=== PATIENT | female | born 1970 | race Caucasian/White ===

== ENCOUNTER 2016-04-20 11:14 | Emergency (ER) | payer OTHER, MEDICAID ==
[2016-04-20 11:53] VITALS: TEMP 97.4
[2016-04-20] MEDS ORDERED: ONDANSETRON ODT 4 MG TAB PO STA (13:00)
[2016-04-20] MEDS ORDERED: HYDROmorphone 1 MG/ML 1 ML SYRINGE IM STA (13:00)
--- NOTE | 2016-04-20 13:05 | ED ---
General Adult HPI - General Chief complaint: Back Pain/Injury Stated complaint: Back pain Time Seen by Provider: 04/20/16 12:44 Source: patient, RN notes reviewed, old records reviewed Mode of arrival: ambulatory Limitations: no limitations - History of Present Illness Initial comments: Patient is a 45-year-old female who presents emergency room today with chief complaint of increased back pain times one day. Does admit that she was leaving a patient's house yesterday when she slipped on the ramp. She states she did not fall down was able to catch herself but twisted her back. She states as the day went on yesterday the back pain increased. She states she woke up this morning with a numbness sensation bilaterally to the left and right hips. She states that she's tried ibuprofen and acetaminophen. She states that the numbness tingling sensation into the right leg has improved. Still experiencing some pain shooting into the left leg mid thigh. Does admit that she felt some numbness in the perineum earlier. Patient states this is improved also. Denies any bowel or bladder incontinence retention. Denies any other complaints. Does admit that she's had some back problems on and off in the past but nothing serious. Patient does not that she went to [facility] earlier today was referred here to the emergency room. Patient denies any recent fever, chills, shortness of breath, chest pain, abdominal pain, nausea or vomiting, dysuria or hematuria, constipation or diarrhea, headaches or visual changes, or any other complaints. - Related Data Home Medications Medication Instructions Recorded Confirmed ALPRAZolam [Xanax] 0.25 mg PO BID PRN 04/20/16 04/20/16 Metoprolol Succinate (ER) [Toprol 50 mg PO DAILY 04/20/16 04/20/16 Xl] amLODIPine [Norvasc] 5 mg PO DAILY 04/20/16 04/20/16 Previous Rx's Medication Instructions Recorded Cyclobenzaprine [Flexeril] 10 mg PO TID #20 tab 04/20/16 Dexamethasone 0.75 mg PO DIRECTED #12 tablet 04/20/16 Hydrocodone/Acetaminophen [[place] 1 each PO Q6HR PRN #20 tab 04/20/16 5-325] Ibuprofen [Motrin] 800 mg PO Q6HR PRN #30 tab 04/20/16 Allergies Allergy/AdvReac Type Severity Reaction Status Date / Time No Known Allergies Allergy Verified 04/20/16 13:09 Review of Systems ROS Statement: Those systems with pertinent positive or pertinent negative responses have been documented in the HPI. ROS Other: All systems not noted in ROS Statement are negative. Past Medical History Past Medical History: Hypertension History of Any Multi-Drug Resistant Organisms: None Reported Past Surgical History: Tonsillectomy Past Psychological History: Anxiety Smoking Status: Never smoker Past Alcohol Use History: None Reported Past Drug Use History: None Reported General Exam - General Exam Comments Initial Comments: General: The patient is awake and alert, in no distress, and does not appear acutely ill. Neck: The neck is supple, there is no tenderness or JVD. Cardiovascular: There is a regular rate and rhythm. No murmur, rub or gallop is appreciated. Respiratory: Lungs are clear to auscultation, respirations are non-labored, breath sounds are equal. No wheezes, stridor, rales, or rhonchi. Gastrointestinal: Soft, non-distended, non-tender abdomen without masses or organomegaly noted. There is no rebound or guarding present. No CVA tenderness. . Back: Patient has normal appearance of thoracic, lumbar spine. No step-offs forms appreciated. Patient tender palpation L1 and L2. Increased paravertebral tenderness on the left compared to the right. Patient shows good range of motion. Is moving slowly due to pain. Patient sensations intact Musculoskeletal: Normal ROM, no tenderness. Strength 5/5. Sensation intact. Pulses equal bilaterally 2+. Neurological: A&O x 3. CN II-XII intact, There are no obvious motor or sensory deficits. Coordination appears grossly intact. Speech is normal. Skin: Skin is warm and dry and no rashes or lesions are noted. Psychiatric: Cooperative, appropriate mood & affect, normal judgment. : [employer]INE[employer]OO Lopes present for exam. Normal rectal tone. Limitations: no limitations Course Vital Signs 04/20/16 11:49 Temperature 97.4 F L Pulse Rate 75 Respiratory 17 Rate Blood Pressure 145/80 O2 Sat by Pulse 100 Oximetry Medical Decision Making - Medical Decision Making Case discussed in detail with attending physician Dr. Woodruff. Patient reexamined at this time shows no signs of distress. Doesn't that she's feeling better after pain medication given here in the emergency room. Patient's x-ray reviewed shows no acute changes. Results were discussed with the patient. Patient will be discharged home and advised to follow-up with family doctor. She does have an appointment with [facility] tomorrow. Was discussed with patient about having a outpatient MRI. Signs and symptoms return were discussed with the patient. Patient will be discharged home with pain medications of [place], ibuprofen along with muscle relaxer and steroid Dosepak for her symptoms. Disposition Clinical Impression: Acute low back pain, Lumbar radiculopathy, acute Disposition: HOME SELF-CARE Condition: Good Instructions: Acute Low Back Pain (ED) Additional Instructions: Please use medication as discussed. Please follow-up with family doctor in the next 2 days of symptoms have not improved. Please return to emergency room if the symptoms increase or worsen or for any other concerns. Prescriptions: Cyclobenzaprine [Flexeril] 10 mg PO TID #20 tab Dexamethasone 0.75 mg PO DIRECTED #12 tablet Hydrocodone/Acetaminophen [[place] 5-325] 1 each PO Q6HR PRN #20 tab PRN Reason: Pain Ibuprofen [Motrin] 800 mg PO Q6HR PRN #30 tab PRN Reason: Pain Time of Disposition: 14:18
--- NOTE | 2016-04-20 13:48 | XR ---
EXAM TYPE: LUMBAR SPINE X RAY SERIES COMPARISON: NONE HISTORY: Pain FINDINGS: Alignment is anatomic. The pedicles are intact. The transverse processes are intact. There is no s pondylolysis or spondylolisthesis. Severe degenerative disc disease L5-S1 with hypertrophic spur for mation and facet arthropathy. IMPRESSION: 1. Severe degenerative disc disease L5-S1.
[2016-04-20 14:24] VITALS: BP 121/72; PULSE 65; RESP 16
== END 2016-04-20 14:52 | disposition home or self-care (01) ==
LOC: EC 11:14
DX: M54.16 Radiculopathy, lumbar region (principal); W01.0XXA Fall on same level from slipping, tripping and stumbling without subsequent striking against object, initial encounter; M51.37 Other intervertebral disc degeneration, lumbosacral region; I10 Essential (primary) hypertension; F41.9 Anxiety disorder, unspecified; Z79.899 Other long term (current) drug therapy
CPT/HCPCS: 99283; 96372; 72100; J1170

== ENCOUNTER → 2016-12-07 | Outpatient (CLI) | payer MEDICAID ==
--- NOTE | 2016-12-08 07:15 | MM ---
Reason for exam: screening (asymptomatic). Last mammogram was performed 4 years and 11 months ago. Physical Findings: A clinical breast exam by your physician is recommended on an annual basis and results should be correlated with mammographic findings. MG 3D Screening Mammo W/Cad Bilateral CC and MLO view(s) were taken. Prior study comparison: January 05, 2012, bilateral digital screening mammo w/CAD. The breast tissue is heterogeneously dense. This may lower the sensitivity of mammography. There is no discrete abnormality. No significant changes when compared with prior studies. ASSESSMENT: Negative, BI-RAD 1 RECOMMENDATION: Routine screening mammogram of both breasts in 1 year.
== END | disposition home or self-care (01) ==
LOC: RADMAMWWP 07:33
PROVIDERS: ATTEND Family Medicine
DX: Z12.31 Encounter for screening mammogram for malignant neoplasm of breast (principal)
CPT/HCPCS: 77063; G0202

== ENCOUNTER → 2017-01-10 | Outpatient (CLI) | payer MEDICAID ==
[2017-01-10 09:41] LABS: Basophils # (A) 0.1 k/uL (0-0.2); Basophils % (A) 1 %; CH 30.7; CHCM 33.2; Eosinophils # (A) 0.1 k/uL (0-0.7); Eosinophils % (A) 2 %; HCT 40.4 % (34.0-46.0); HDW 2.47; HGB 13.3 gm/dL (11.4-16.0); Luc # (Auto) 0.07; Luc % (Auto) 1; Lymphocytes # (A) 1.3 k/uL (1.0-4.8); Lymphocytes % (A) 23 %; MCH 30.5 pg (25.0-35.0); MCHC 32.9 g/dL (31.0-37.0); MCV 92.8 fL (80.0-100.0); Mean Platelet Volume 6.5; Monocytes # (A) 0.3 k/uL (0-1.0); Monocytes % (A) 5 %; Neutrophils % (A) 68 %; RBC 4.36 m/uL (3.80-5.40); RDW 12.2 % (11.5-15.5); WBC 5.9 k/uL (3.8-10.6); WBC (Perox) 5.96
[2017-01-10 09:44] LABS: ALT 22 U/L (9-52); AST 19 U/L (14-36); Alkaline Phosphatase 72 U/L (38-126); Anion Gap 10 mmol/L; Blood Urea Nitrogen 18 mg/dL (7-17); Calcium 9.4 mg/dL (8.4-10.2); Carbon Dioxide 26 mmol/L (22-30); Chloride 105 mmol/L (98-107); Cholesterol 140 mg/dL (<200); Glucose 94 mg/dL (74-99); HDL Cholesterol 52 mg/dL (40-60); Non-African American GFR(MDRD) >60 (>60 ml/min/1.73 sqM); Potassium 4.2 mmol/L (3.5-5.1); Sodium 141 mmol/L (137-145); Total Bilirubin 0.5 mg/dL (0.2-1.3); Total Protein 7.3 g/dL (6.3-8.2)
== END | disposition home or self-care (01) ==
LOC: LABWHC1 08:42
PROVIDERS: ATTEND Family Medicine
DX: I10 Essential (primary) hypertension (principal); M51.26 Other intervertebral disc displacement, lumbar region; D32.9 Benign neoplasm of meninges, unspecified; E55.9 Vitamin D deficiency, unspecified; E53.8 Deficiency of other specified B group vitamins
CPT/HCPCS: 36415; 80053; 80061; 82306; 82607; 84439; 84443; 85025

== ENCOUNTER → 2017-07-04 | Outpatient (CLI) | payer MEDICAID ==
--- NOTE | 2017-07-04 15:23 | MR ---
EXAMINATION TYPE: MR brain wo/w con DATE OF EXAM: 07/04/2017 COMPARISON: Prior MRI brain December 30, 2015. HISTORY: recheck meningioma TECHNIQUE: Multiplanar, multisequence images of the brain and brainstem is performed without and with IV contras t, utilizing 7 mL intravenous Gadavist . FINDINGS: Diffusion weighted images demonstrate no evidence of a recent infarct or other diffusion ab normality. There is no worrisome extra-axial fluid collection. The ventricular system and cisternal spaces are normal in size and appearance. The brain volume is age appropriate. There are few scatte red foci of T2 hyperintensity seen throughout the deep and periventricular white matter. Approximatel y 10-15 scattered lesions remain present. Lesions are nonspecific in appearance and distribution but most likely on basis of product of chronic small vessel ischemic change in patient of this age. Midline structures demonstrate normal morphology. The craniocervical junction appears within normal limits. There is redemonstration of fairly homogeneous enhancing extra-axial mass right paracentral r egion measuring 2.5 x 2.3 x 2.1 cm craniocaudal dimension axial image 24 and sagittal image 82 consis tent with meningioma that is grossly stable in size and appearance from prior MRI no new suspicious e nhancing lesions are seen.. The dural venous sinuses appear patent. The visualized sinuses are clear and the globes are intact. IMPRESSION: Stable fairly moderate size right occipital roughly 2.5 cm meningioma. Mild nonspecific w jose guadalupe matter changes. No new suspicious findings appreciated.
== END | disposition home or self-care (01) ==
LOC: RADMRIMAIN 14:32
PROVIDERS: ATTEND Family Medicine
DX: D32.9 Benign neoplasm of meninges, unspecified (principal)
CPT/HCPCS: 70553; A9581

== ENCOUNTER → 2017-07-05 | Outpatient (CLI) | payer MEDICAID ==
--- NOTE | 2017-07-06 11:13 | ECHOF ---
Referral Reason:R07.9 Chest Pain MEASUREMENTS -------- HEIGHT: 160.0 cm WEIGHT: 67.6 kg BP: RVIDd: 2.7 cm (< 3.3) IVSd: 1.0 cm (0.6 - 1.1) LVIDd: 4.2 cm (3.9 - 5.3) LVPWd: 0.8 cm (0.6 - 1.1) IVSs: 1.2 cm LVIDs: 3.0 cm LVPWs: 1.1 cm LA Diam: 3.0 cm (2.7 - 3.8) LAESV Index (A-L): 29.26 ml/m Ao Diam: 2.3 cm (2.0 - 3.7) AV Cusp: 1.8 cm (1.5 - 2.6) LA Diam: 3.7 cm (2.7 - 3.8) MV EXCURSION: 18.221 mm (> 18.000) MV EF SLOPE: 83 mm/s (70 - 150) EPSS: 0.3 cm MV E Peter: 0.66 m/s MV DecT: 172 ms MV A Peter: 0.67 m/s MV E/A Ratio: 0.98 RAP: 5.00 mmHg RVSP: 24.48 mmHg FINDINGS -------- Sinus rhythm. This was a technically good study. LV size, wall thickness and systolic function are normal, with an EF greater than 55%. The left joe tricular size is normal. The right ventricle is normal in size. The left atrial size is normal. LA is midly dilated 29-33ml/m2. The right atrial size is normal. The aortic valve is trileaflet, and appears structurally normal. No aortic stenosis or regurgitation. There is trace mitral regurgitation. Mild tricuspid regurgitation present. There is no evidence of pulmonary hypertension. The right v entricular systolic pressure, as measured by Doppler, is 24.48mmHg. There is no pulmonic regurgitation present. The aortic root size is normal. There is no pericardial effusion. CONCLUSIONS -------- 1. LV size, wall thickness and systolic function are normal, with an EF greater than 55%. 2. The left ventricular size is normal. 3. The left atrial size is normal. 4. LA is midly dilated 29-33ml/m2. 5. The aortic valve is trileaflet, and appears structurally normal. No aortic stenosis or regurgitati on. 6. There is trace mitral regurgitation. 7. Mild tricuspid regurgitation present. 8. There is no evidence of pulmonary hypertension. 9. The right ventricular systolic pressure, as measured by Doppler, is 24.48mmHg. 10. There is no pulmonic regurgitation present. 11. The aortic root size is normal. 12. There is no pericardial effusion. [employer]: Cecelia Kurtz RDCS
== END | disposition home or self-care (01) ==
LOC: RADECHMAIN 14:04
PROVIDERS: ATTEND Family Medicine
DX: I07.1 Rheumatic tricuspid insufficiency (principal)
CPT/HCPCS: 93306

== ENCOUNTER → 2017-09-01 | Outpatient (CLI) | payer MEDICAID ==
--- NOTE | 2017-09-01 12:17 | CT ---
EXAMINATION TYPE: CT brain w con DATE OF EXAM: 09/01/2017 COMPARISON: 07/04/2017 MRI and 12/30/2015 MRI. HISTORY: Known right posterior parietal parasagittal meningioma. Follow-up exam. CT DLP: 2688 mGycm Automated Exposure Control for Dose Reduction was Utilized. TECHNIQUE: CT scan of the head is performed with IV contrast.,CT scan of the head is performed withou t and with with IV Contrast, patient injected with 65mL of Isovue 370. FINDINGS: The known right parasagittal posterior parietal extradural partially calcified heterogenou s intensely enhancing meningioma measures approximately 2.3 x 2.5 x 2.2 cm in transverse by anterior posterior by craniocaudal dimension with minimal mass effect upon the surrounding sulci and gyri. Thi s is similar in measurement to the prior MR dated 07/04/2017 (measurements of 2.3 x 2.5 x 2.1 cm) give n differences in technique. No surrounding vasogenic edema is identified. No additional intra-axial o r extra-axial masses are seen. No additional abnormal areas of intraparenchymal enhancement are prese nt. The known mild nonspecific white matter change on MRI is better appreciated on MRI. There is no suspicious extra axial fluid collection. The ventricles and sulci are within normal limits in size. T he globes are intact and the visualized sinuses are clear. IMPRESSION: Redemonstration of the right parasagittal extra-axial meningioma measuring up to 2.5 cm, unchanged from the MRI of 07/04/2017. No new intracranial findings.
--- NOTE | 2017-09-01 12:29 | CT ---
EXAMINATION TYPE: CT angio head neck DATE OF EXAM: 09/01/2017 HISTORY: Benign neoplasm of cerebral meninges, dizziness COMPARISON: NONE CT DLP: 2688 mGycm. Automated Exposure Control for Dose Reduction was Utilized. TECHNIQUE: CTA scan of the neck is performed without and with IV Contrast, patient injected with 65 mL of Isovue 370, axial images are obtained, coronal and sagittal reformatted images are reviewed. Th ree-D reconstructed images are created on an independent workstation and reviewed. FINDINGS: Carotid/Vascular Structures: There is a normal conventional 3 vessel branch pattern of the aortic arc h. The common carotids, internal carotids, external carotids, and vertebral arteries are patent witho ut evidence of dissection, hemodynamically significant stenosis, occlusion, or aneurysmal outpouching . The vertebral arteries are codominant. The mary's igloo of [place] is intact and unremarkable. No peripher al aneurysm is seen. No arterial venous malformation is identified. Other: Minimal bibasilar subsegmental dependent atelectasis is seen within the lung apices. Mildly pr ominent but nonenlarged cervical chain lymph nodes are noted. The known right hemispheric meningioma is redemonstrated and described on the CT brain dictation of the same date. IMPRESSION: No evidence for hemodynamically significant stenosis, vascular occlusion, dissection, or aneurysmal outpouching within the head or neck.
== END | disposition home or self-care (01) ==
LOC: RADCTMAIN 10:56
PROVIDERS: ATTEND Neurological Surgery
DX: D32.0 Benign neoplasm of cerebral meninges (principal)
CPT/HCPCS: 70496; 70460; 70498; Q9967

== ENCOUNTER → 2018-02-14 | Outpatient (CLI) | payer MEDICAID ==
[2018-02-14 13:06] LABS: Basophils % (A) 1 %; Eosinophils # (A) 0.1 k/uL (0-0.7); Eosinophils % (A) 2 %; HCT 37.7 % (34.0-46.0); HGB 12.8 gm/dL (11.4-16.0); Lymphocytes # (A) 1.5 k/uL (1.0-4.8); Lymphocytes % (A) 25 %; MCH 31.2 pg (25.0-35.0); MCV 91.8 fL (80.0-100.0); Mean Platelet Volume 6.5; Monocytes # (A) 0.2 k/uL (0-1.0); Monocytes % (A) 4 %; Neutrophils # (A) 4.2 k/uL (1.3-7.7); Neutrophils % (A) 68 %; Platelet Count 287 k/uL (150-450); RBC 4.11 m/uL (3.80-5.40); RDW 12.6 % (11.5-15.5); WBC 6.1 k/uL (3.8-10.6)
[2018-02-14 18:59] LABS: Albumin 4.3 g/dL (3.80-4.90); Albumin/Globulin Ratio 2.05 (1.20-2.10); Anion Gap 7.4 mmol/L (4.00-12.00); Calcium 9.2 mg/dL (8.7-10.3); Carbon Dioxide 27.6 mmol/L (21.6-31.8); Globulin 2.1 g/dL (2.1-3.7); Potassium 3.6 mmol/L (3.5-5.5); Total Bilirubin 0.7 mg/dL (0.3-1.2); Total Protein 6.4 g/dL (6.2-8.2)
[2018-02-14 19:06] LABS: T4, Free (Free Thyroxine) 1.1 ng/dL (0.80-1.80)
== END | disposition home or self-care (01) ==
LOC: LABWHC1 11:48
PROVIDERS: ATTEND Family Medicine
DX: F41.9 Anxiety disorder, unspecified (principal); I10 Essential (primary) hypertension
CPT/HCPCS: 36415; 80053; 82607; 84439; 84443; 85025

== ENCOUNTER → 2018-02-15 | Outpatient (CLI) | payer MEDICAID ==
--- NOTE | 2018-02-15 20:27 | MR ---
EXAMINATION TYPE: MR brain wo/w con DATE OF EXAM: 02/15/2018 COMPARISON: 07/04/2017 HISTORY: 6 month follow up to evaluate tumor. Gadavist 7.5 TECHNIQUE: Multiplanar, multisequence images of the brain and brainstem is performed without and with IV contras t, utilizing 7.5 mL intravenous Gadavist . FINDINGS: Diffusion weighted images demonstrate no evidence of a recent infarct or other diffusion ab normality. The ventricular system and cisternal spaces are normal in size and appearance. The brain volume is age appropriate. There are few scattered foci of T2 hyperintensity seen throughout the deep and periventricular white matter. Approximately 10-15 scattered lesions remain present. Lesions are nonspecific in appearance a nd distribution Heart, turcica noted. Craniocervical junction maintained. There is a small amount of fluid surroundin g the optic nerves bilaterally. The dural venous sinuses appear patent. There is redemonstration of fairly homogeneous enhancing extra-axial mass right parietal occipital ju nction measuring 2.5 x 2.3 x 2.1 cm which is stable. IMPRESSION: 1. Stable right cerebral hemisphere extra-axial mass measuring approximately 2.5 cm. Findings unchang ed in size or appearance from the prior exam. Meningioma most likely etiology. Dural venous sinuses e nhance. There is some compression of the superior sagittal sinus by the extra-axial mass which is sta ble. 2. Nonspecific white matter changes are stable in appearance. Differential diagnosis includes hyperte nsion, remote microvascular ischemia, and demyelinating process. 3. There is a tiny amount of fluid surrounding the optic nerves. This is a nonspecific finding can oc casionally be seen with benign increased intracranial hypertension. Partially empty sella also noted. Correlate clinically.
== END | disposition home or self-care (01) ==
LOC: RADMRIMAIN 17:59
PROVIDERS: ATTEND Family Medicine
DX: G93.89 Other specified disorders of brain (principal); R90.89 Other abnormal findings on diagnostic imaging of central nervous system; I10 Essential (primary) hypertension; Z86.69 Personal history of other diseases of the nervous system and sense organs
CPT/HCPCS: 70553; A9585

== ENCOUNTER → 2018-07-17 | Outpatient (CLI) | payer MEDICAID ==
[2018-07-17 08:38] LABS: Basophils % (A) 1 %; Eosinophils # (A) 0.1 k/uL (0-0.7); Eosinophils % (A) 1 %; HCT 39.8 % (34.0-46.0); HGB 13.3 gm/dL (11.4-16.0); Lymphocytes # (A) 1.8 k/uL (1.0-4.8); Lymphocytes % (A) 27 %; MCH 30.8 pg (25.0-35.0); MCHC 33.5 g/dL (31.0-37.0); MCV 91.9 fL (80.0-100.0); Mean Platelet Volume 6.7; Monocytes # (A) 0.4 k/uL (0-1.0); Monocytes % (A) 6 %; Neutrophils # (A) 4.1 k/uL (1.3-7.7); Neutrophils % (A) 64 %; Platelet Count 259 k/uL (150-450); RBC 4.33 m/uL (3.80-5.40); RDW 12.7 % (11.5-15.5); WBC 6.5 k/uL (3.8-10.6)
[2018-07-17 08:47] LABS: ALT 21 U/L (9-52); AST 17 U/L (14-36); Albumin 4.4 g/dL (3.5-5.0); Alkaline Phosphatase 57 U/L (38-126); Anion Gap 8 mmol/L; Blood Urea Nitrogen 18 mg/dL (7-17); Calcium 9.5 mg/dL (8.4-10.2); Carbon Dioxide 26 mmol/L (22-30); Chloride 105 mmol/L (98-107); Cholesterol 147 mg/dL (<200); Glucose 89 mg/dL (74-99); HDL Cholesterol 60 mg/dL (40-60); LDL Cholesterol,Calculated 66 mg/dL (0-99); Magnesium 2.1 mg/dL (1.6-2.3); Potassium 4.2 mmol/L (3.5-5.1); Sodium 139 mmol/L (137-145); Total Bilirubin 0.8 mg/dL (0.2-1.3); Triglycerides 105 mg/dL (<150)
[2018-07-17 09:03] LABS: T4, Free (Free Thyroxine) 1.02 ng/dL (0.78-2.19)
[2018-07-17 16:24] LABS: Vitamin D 25 Hydroxy 38.3 ng/mL (30.0-100.0)
--- NOTE | 2018-07-18 15:11 | MR ---
EXAMINATION TYPE: MR brain wo/w con DATE OF EXAM: 07/17/2018 COMPARISON: 02/15/2018 MRI brain HISTORY: Meningioma TECHNIQUE: Multiplanar, multisequence images of the brain and brainstem is performed without and with IV contras t, utilizing 7 mL intravenous Gadavist . FINDINGS: There is redemonstration of a T1 and T2 isointense nearly homogeneously enhancing right par afalcine meningioma. No acute intracranial hemorrhage is seen on T1-weighted noncontrast imaging. Thi s does display some internal heterogeneity and suspected calcifications. There is minimal mass effect on the posterior falx with few millimeter shift leftward. No surrounding vasogenic edema. Mild mass effect on the surrounding sulci and gyri. This does demonstrate dural tail and is extra-axial in loca tion. This measures approximately 2.4 x 2.6 x 2.5 cm as opposed to 2.5 x 2.3 x 2.1 cm demonstrating m inimal interval growth. Again there is some mass effect on the superior sagittal sinus although this does appear patent. Diffusion weighted images demonstrate no evidence of a recent infarct or other diffusion abnormality. There is no extra-axial fluid collection. There is stable size and number of the approximately 10-1 5 T2/FLAIR hyperintense nonenhancing foci in the subcortical and periventricular white matter in comp arison the prior of 02/07/2018. The ventricular system and cisternal spaces are normal in size and ap pearance. The brain volume is age appropriate. Midline structures demonstrate normal morphology. The craniocervical junction appears within normal limits. The visualized sinuses are clear and the globes are intact. Again there is minimal subarachno id fluid surrounding the optic nerves bilaterally and a partially empty sella turcica that can be see n in increased intracranial pressure as noted on the prior although could be an incidental finding. IMPRESSION: 1. Slight interval increase in size of the right extra-axial mass with characteristics most compatibl e with a hemangioma or there is again slight mass effect on the superior sagittal sinus seen surround ing sulci however no significant vasogenic edema is seen nor dural venous occlusion. 2. Stable nonspecific white matter change, possibly on the basis of microangiopathy.
== END | disposition home or self-care (01) ==
LOC: RADMRIMAIN 08:00
PROVIDERS: ATTEND Family Medicine
DX: D32.9 Benign neoplasm of meninges, unspecified (principal); I10 Essential (primary) hypertension; M51.26 Other intervertebral disc displacement, lumbar region
CPT/HCPCS: 84439; 80061; 80053; 82607; 83735; 84443; 85025; 82306; 70553; A9585

== ENCOUNTER → 2018-11-07 | Outpatient (CLI) | payer MEDICAID ==
--- NOTE | 2018-11-07 23:17 | XR ---
EXAMINATION TYPE: XR lumbar spine 2 or 3V DATE OF EXAM: 11/07/2018 COMPARISON: NONE HISTORY: 48-year-old female degenerative disc disease L4, L5 TECHNIQUE: 3 views FINDINGS: 5 lumbar type vertebral bodies. Moderate disc height loss at L5-S1 with endplate spondylosis. Mild fa cet arthropathy lower lumbar spine. Vertebral body heights are preserved and alignment is maintained. IMPRESSION: Moderate degenerative disc disease L5-S1. No vertebral compression collapse or malalignment.
== END | disposition home or self-care (01) ==
LOC: RADXRMAIN 15:34
PROVIDERS: ATTEND Family Medicine
DX: M51.37 Other intervertebral disc degeneration, lumbosacral region (principal)
CPT/HCPCS: 72100

== ENCOUNTER → 2018-11-15 | Outpatient (CLI) | payer MEDICAID ==
--- NOTE | 2018-11-16 07:36 | MR ---
EXAMINATION TYPE: MR lumbar spine wo con DATE OF EXAM: 11/15/2018 COMPARISON: Lumbar spine x-ray November 07, 2018. HISTORY: Chronic low back pain, recently getting worse, LLE radic. Large disc herniation per order. TECHNIQUE: Multiplanar, multisequence imaging of the lumbar spine is performed without IV contrast. FINDINGS: Sagittal images of the lumbar spine show vertebral body heights and alignment to appear sat isfactory. There is disc desiccation L3-L4 through L5-S1 levels. There is moderate disc space narrowi ng L5-S1 level. There is annular tear L3-L4 level with increased signal posteriorly. Minimal multile rodney anterior spurring is present. The conus medullaris is normal in position and signal ending at L1 level. Symmetric changes Modic type II endplate changes are seen right L5-S1 level anteriorly. Axial images show the T12-L1, L1-L2, and L2-L3 levels all to appear within normal limits. Axial images at the L3-L4 level to broad-based right paracentral disc protrusion effacing the anterio r thecal sac axial image 15, bilateral neural foramina are patent. Axial images at the L4-L5 level show broad disc bulge with more focal right paracentral disc protrusi on axial image 9 effacing the anterior thecal sac, there is mild bilateral anterior inferior neural f oraminal narrowing. Mild facet arthropathy bilaterally. Axial images at the L5-S1 level shows broad-based posterior disc protrusion and mild facet degenerati ve changes bilaterally. There is mild bilateral inferior neural foraminal narrowing. Spinal canal is preserved. There is partial visualization of anteverted uterus on sagittal images. Paraspinal muscle bulk is pre served. IMPRESSION: Multilevel degenerative changes in the mid to lower lumbar spine as detailed above.
== END | disposition home or self-care (01) ==
LOC: RADMRIMAIN 18:27
PROVIDERS: ATTEND Family Medicine
DX: M99.73 Connective tissue and disc stenosis of intervertebral foramina of lumbar region (principal); M99.74 Connective tissue and disc stenosis of intervertebral foramina of sacral region; M48.061 Spinal stenosis, lumbar region without neurogenic claudication; M51.26 Other intervertebral disc displacement, lumbar region; M51.27 Other intervertebral disc displacement, lumbosacral region; M51.36 Other intervertebral disc degeneration, lumbar region; M47.817 Spondylosis without myelopathy or radiculopathy, lumbosacral region; M46.96 Unspecified inflammatory spondylopathy, lumbar region
CPT/HCPCS: 72148

== ENCOUNTER → 2018-12-06 | Outpatient (CLI) | payer MEDICAID ==
[2018-12-06 12:00] VITALS: BP 126/77; PULSE 75; RESP 15
--- NOTE | 2018-12-06 13:49 | P.PAINCN ---
History of Present Illness - Reason for Consult Consult date: 12/06/18 - History of Present Illness This is a 48-year-old female patient referred by Dr. Rodríguez for chronic pain in left low back with radiation to left SI joint area, occasionally to left posterior leg, not past the knee, occasionally into the lateral aspect and front of thigh, not past the knee. She does complain of occasional numbness in the left fourth and fifth toe. Patient has been taking medications from primary care physician including Motrin, Tylenol, Cymbalta and very occasionally Hood with some relief. She endorses side effects from Hood in the form of "feeling sick". Patient also denies new-onset weakness, bowel/bladder incontinence, or any other signs or symptoms of cauda equina syndrome. There are no signs of acute intoxication, and no indications of medication diversion or overuse. She works as a home health nurse and states that she has had this pain since high school, with intermittent flares with periods of no pain lasting several months. She states that over the last few years, her flareups have gotten significantly worse and closer together. Her most recent flare was in October 2018, and she was evaluated by her primary care physician and given a course of oral steroids as well as a prescription for Hood and IM Toradol. She has since then seen a chiropractor with slight benefit. She was also evaluated by a neurosurgeon, Dr. Rodriguez, at [facility] who told her that she would eventually need surgery, however recommended following with the pain physician to treat symptoms initially. She last did physical therapy approximately 2 years ago, and does not do home exercises, however does yoga which helps her pain. Her pain is worse with walking, in the morning. Pain is better with heat, Motrin, yoga. Pain is rated as 4 out of 10 today, 3 weeks ago it was 10 out of 10. Patient HAS NOT had surgery. Patient HAS NOT had injections previously. In addition to above, 13-point review of systems is also negative for chest pain, shortness of breath, changes in vision, changes in hearing, new onset weakness, abdominal pain, diarrhea, extreme fatigue, malaise, fever, skin changes, homicidal or suicidal ideation, or bowel or bladder incontinence. Past Medical History Past Medical History: Hypertension, Osteoarthritis (OA) Additional Past Medical History / Comment(s): BACK PAIN, MENINGIOMA - BRAIN TUMOR History of Any Multi-Drug Resistant Organisms: None Reported Past Surgical History: Tonsillectomy Past Anesthesia/Blood Transfusion Reactions: No Reported Reaction Smoking Status: Never smoker - Past Family History Father Family Medical History: Cancer Additional Family Medical History / Comment(s): LEUKEMIA Medications and Allergies Home Medications Medication Instructions Recorded Confirmed Type Metoprolol Succinate (ER) [Toprol 50 mg PO DAILY 04/20/16 12/06/18 History Xl] amLODIPine [Norvasc] 5 mg PO DAILY 04/20/16 12/06/18 History Cholecalciferol (Vitamin D3) 2,000 unit PO DAILY 11/30/18 12/06/18 History [Vitamin D3] DULoxetine HCL [Cymbalta] 30 mg PO BID 11/30/18 12/06/18 History HYDROcodone/APAP 7.5-325MG [Hood 1 tab PO Q6HR PRN 11/30/18 12/06/18 History 7.5-325] Ibuprofen [Motrin] 600 mg PO Q6HR PRN 11/30/18 12/06/18 History Allergies Allergy/AdvReac Type Severity Reaction Status Date / Time No Known Allergies Allergy Verified 12/06/18 11:43 Physical Exam Vitals: Heart rate 75 bpm Blood pressure 126/77 Height 5 feet 3 inches Weight 148 pounds GENERAL: Well appearing, in no acute distress PSYCH: Mood and affect is appropriate. Awake, alert, and oriented SKIN: Skin color, texture, turgor normal, no rashes or lesions HEENT: Normocephalic, atraumatic. EOM intact CV: No pedal edema RESP: Respirations are unlabored, no audible wheezing GI: Abdomen non-distended MUSCULOSKELETAL: Bilateral lower extremity strength is normal and symmetric. No atrophy or tone abnormalities are noted. Lumbar spine: Straight leg raising in the sitting position is positive on the left for radicular pain in left lateral thigh. No pain to palpation over the lumbar spine and paraspinous muscles. Positive for pain with facet loading on the left side Limited lumbar spine extension to 30, due to pain Buttocks: No pain to palpation over the PSIS, Marie test is bilaterally, sacral thrust negative, Gainslin's test negative Extremities: Peripheral joint ROM is full and pain free without obvious instability or laxity in all four extremities. No edema or skin discolorations noted. Gait: Gait is normal NEUR: Bilateral lower extremity coordination and muscle stretch reflexes are physiologic and symmetric. Negative clonus. Loss of sensation to light touch noted in left lateral thigh. Cranial nerves are grossly intact. Results Comments: Lumbar spine MRI done at [facility] on 11/15/2018: Multilevel degenerative changes in the mid to lower lumbar spine. Disc desiccation at L34 through L5-S1 levels. Moderate disc space narrowing at L5-S1. Annular tear at L3-L4 with increased signal posteriorly. L4-5 shows right paracentral disc protrusion effacing anterior thecal sac with mild bilateral neuroforaminal narrowing. At L5-S1 broad-based disc protrusion causing mild bilateral neuroforaminal narrowing. Multilevel facet arthritis. Assessment and Plan Plan: Assessment: 1. Lumbar spondylosis 2. Lumbar degenerative disc disease 3. Lumbar radiculopathy Plan: 1. Explanation: Opioid and psychological risk scores were reviewed. Diagnoses, prognoses, and multiple treatment options including but not limited to physical therapy, interventional therapies, adjuvant medical therapies, narcotic medication therapies, and surgery were discussed with the patient and all questions were answered to the patient's satisfaction. 2. Opioid agreement: None 3. Counseling: The patient was counseled on EXERCISE and the need for home exercise therapy. She was given a handout of home exercises to perform 4. Procedures: We'll schedule the patient for left sided medial branch blocks at L3, L4, L5 for facet joints L4-5 and L5-S1. 5. Consultations: Referral given to physical therapy for low back strengthening, stretching and core strengthening exercises 6. Investigations: None, MRI lumbar spine reviewed 7. Medications: Managed by PCP 8. Disposition: For above-mentioned procedure PQRS Measure Charge Sheet Measure #130: Documentation of Current Meds in Medical Chart: Patient's medications documented in chart Measure #226: Tobacco Use: Screen & Cessation Intervention: Pt not a tobacco user Measure #111: Pneumonia Vaccination: Pneumococcal vaccine NOT administered or previously given Measure #47: Advance Care Plan: Advance care planning discussed & documented, pt chose/unable to give Measure #412: Opioid Treatment Agreement: No documentation of signed opioid treatment agreement Measure #317: Preventitive Care & Scrn High Bld Press & F/U: Normal blood pressure, f/u not required Measure #128: Body Mass Index (BMI) Screening & Follow-up: BMI documented within normal parameters Measure #131: Pain Assessment & Follow-up: Pain positive & plan documented, Follow-up scheduled Measure #431: Unhealthy Alcohol Use Preventative Care & Scrn: Patient not identified as an unhealthy alcohol user PQRS Narrative: Smoking Status Never smoker Pain Intensity [Back] 6 Scale Used Numeric (1 - 10) Hx Alcohol Use (MH) Yes: RARE Home Medications: Ambulatory Orders Metoprolol Succinate (ER) [Toprol Xl] 50 mg PO DAILY 04/20/16 amLODIPine [Norvasc] 5 mg PO DAILY 04/20/16 Cholecalciferol (Vitamin D3) [Vitamin D3] 2,000 unit PO DAILY 11/30/18 DULoxetine HCL [Cymbalta] 30 mg PO BID 11/30/18 HYDROcodone/APAP 7.5-325MG [Hood 7.5-325] 1 tab PO Q6HR PRN 11/30/18 Ibuprofen [Motrin] 600 mg PO Q6HR PRN 11/30/18
== END | disposition home or self-care (01) ==
LOC: PNWHC3 11:42
PROVIDERS: ATTEND Anesthesiology
DX: G89.29 Other chronic pain (principal); M51.16 Intervertebral disc disorders with radiculopathy, lumbar region; M47.26 Other spondylosis with radiculopathy, lumbar region; I10 Essential (primary) hypertension; Z79.899 Other long term (current) drug therapy
CPT/HCPCS: 99211

== ENCOUNTER 2018-12-12 06:51 | Day surgery (SDC) | payer MEDICAID ==
[2018-12-11 08:17] VITALS: BMI 25.7
[2018-12-12] MEDS: LACTATED RINGERS 1,000 ML IV SCH ×2 (07:38→07:53)
[2018-12-12] MEDS ORDERED: LIDOCAINE 1% 20 ML VIAL (10MG/ML) FOR IV START INTRADERMA ONE (07:38)
[2018-12-12 07:43] VITALS: RESP 16; TEMP 98.5
--- NOTE | 2018-12-12 08:20 | P.PCN ---
Date of Procedure: 12/12/18 Procedure(s) Performed: PREOPERATIVE DIAGNOSIS : Lumbar spondylosis with Facet Arthropathy without myelopathy POSTOPERATIVE DIAGNOSIS: same PROCEDURE: Diagnostic lumbar medial branch block with fluoroscopy at bilateral medial branch of L3, L4 and dorsal rami of L5 ANESTHESIA: Local anesthetic; no sedation was used Surgeon: Hannah Hayden MD PROCEDURE INDICATION: Axial Back Pain PROCEDURE DESCRIPTION: The patient was seen and identified in the preop holding area , risks and benefits and possible complications of the procedure and alternative were discussed with the patient, and the patient agreed to proceed with the procedure and signed the consent IV was started and vital signs monitored during the procedure and fluoroscopy was used to maximize the benefit and accuracy of the needle placement, and sedation was given to decrease patient anxiety, patient was taken to the procedure room and placed in prone position vital signs monitored in the back prepped. Under strict sterile technique using a right oblique fluoroscopy ,the junction of the transverse process and the superior articulating process of the bilateral L3- 4 , L4- 5, and L5-S1 vertebra which corresponding to the fluoroscopy image of the eye of the Parker dog on the block side for the medial branches and subsequently , after local infiltration of skin and subcutaneous tissues with lidocaine 1% one mL at each level ,then one 25-gauge Quincke-type needles was placed at the junction of the base of the transverse process and the superior articular process at the appropriate level, and the needle was advanced until the periosteum contacted, needle placement confirmed with AP and oblique view and after appropriate needle placement confirmed, and after negative aspiration, 0.5 mL of Marcaine 0.5% was injected at each level and the needle subsequently removed. Images were saved to radiology. At the end of the procedure and the needles removed and a bandage applied after the skin was cleaned the cleaning solution patient taken to recovery room in stable condition and monitors in the recovery room for 20-30 minutes and discharged home in stable condition after discharge criteria met and patient will have her second diagnostic medial branch block if this was efficacious. EBL: Minimal COMPLICATION: None.
[2018-12-12] MEDS ORDERED: IV FLUID CONTINUATION 900 ML IV ONE (08:22)
[2018-12-12 08:34] VITALS: BP 133/84; PULSE 74
--- NOTE | 2018-12-12 22:49 | FL ---
EXAMINATION TYPE: FL guided pain mgmt statistic DATE OF EXAM: 12/12/2018 CLINICAL HISTORY: Low back pain. TECHNIQUE: Fluoroscopy. COMPARISON: None. FINDINGS: Fluoroscopic guidance was provided during pain relief procedure performed by Dr. Hayden . A total of 11 seconds of fluoroscopic time was utilized during the procedure and 4 spot images are acquired. Images acquired shows needle localization at several levels of the lumbar spine. IMPRESSION: As Above.
== END 2018-12-12 08:54 | disposition home or self-care (01) ==
LOC: ORPAIN 06:51
PROVIDERS: ATTEND Anesthesiology
DX: G89.29 Other chronic pain (principal); M47.26 Other spondylosis with radiculopathy, lumbar region; M51.16 Intervertebral disc disorders with radiculopathy, lumbar region; M51.36 Other intervertebral disc degeneration, lumbar region; I10 Essential (primary) hypertension; M19.90 Unspecified osteoarthritis, unspecified site; D32.0 Benign neoplasm of cerebral meninges; Z79.1 Long term (current) use of non-steroidal anti-inflammatories (NSAID); Z79.891 Long term (current) use of opiate analgesic; Z79.899 Other long term (current) drug therapy; Z90.89 Acquired absence of other organs; Z80.6 Family history of leukemia
CPT/HCPCS: 81025

== ENCOUNTER 2018-12-26 08:07 | Day surgery (SDC) | payer MEDICAID ==
[2018-12-21 11:21] VITALS: BMI 25.7
[~2018-12-26 08:07] MED LIST: LACTATED RINGERS 1,000 ML IV SCH
[2018-12-26 08:31] VITALS: RESP 18; TEMP 97.8
[2018-12-26] MEDS ORDERED: LACTATED RINGERS 1,000 ML IV ONE (08:31)
[2018-12-26] MEDS ORDERED: LIDOCAINE 1% 20 ML VIAL (10MG/ML) FOR IV START INTRADERMA ONE (08:32)
--- NOTE | 2018-12-26 09:46 | P.PCN ---
Date of Procedure: 12/26/18 Procedure(s) Performed: PREOPERATIVE DIAGNOSIS : Lumbar spondylosis with Facet Arthropathy without myelopathy POSTOPERATIVE DIAGNOSIS: same PROCEDURE: Diagnostic lumbar medial branch block with fluoroscopy at bilateral medial branch of L3, L4, dorsal rami of L5 ANESTHESIA: Local anesthetic; no sedation was used Surgeon: Hannah Hayden MD PROCEDURE INDICATION: Lumbar spondylosis, this is her second medial branch block PROCEDURE DESCRIPTION: The patient was seen and identified in the preop holding area , risks and benefits and possible complications of the procedure and alternative were discussed with the patient, and the patient agreed to proceed with the procedure and signed the consent IV was started and vital signs monitored during the procedure and fluoroscopy was used to maximize the benefit and accuracy of the needle placement, and sedation was given to decrease patient anxiety, patient was taken to the procedure room and placed in prone position vital signs monitored in the back prepped. Under strict sterile technique using a right oblique fluoroscopy ,the junction of the transverse process and the superior articulating process of the bilateral L3- 4 , L4- 5, and L5-S1 vertebra which corresponding to the fluoroscopy image of the eye of the Parker dog on the block side for the medial branches and subsequently , after local infiltration of skin and subcutaneous tissues with lidocaine 1% one mL at each level ,then one 25-gauge Quincke-type needles was placed at the junction of the base of the transverse process and the superior articular process at the appropriate level, and the needle was advanced until the periosteum contacted, needle placement confirmed with AP and oblique view and after appropriate needle placement confirmed, and after negative aspiration, 0.5 mL of Marcaine 0.5% was injected at each level and the needle subsequently removed. Images were saved to radiology. At the end of the procedure and the needles removed and a bandage applied after the skin was cleaned the cleaning solution patient taken to recovery room in stable condition and monitors in the recovery room for 20-30 minutes and discharged home in stable condition after discharge criteria met and patient will follow up with the pain clinic in 2-4 weeks for consideration of a radiofrequency ablation. EBL: Minimal COMPLICATION: None.
[2018-12-26 10:15] VITALS: BP 144/84; PULSE 73
--- NOTE | 2018-12-26 14:09 | FL ---
EXAMINATION TYPE: FL guided pain mgmt statistic DATE OF EXAM: 12/26/2018 FLUOROSCOPY Fluoroscopy time of 15 seconds was used during bilateral lumbar medial branch blocks. image/s documen t/s the procedure.
== END 2018-12-26 10:20 | disposition home or self-care (01) ==
LOC: ORPAIN 08:07
PROVIDERS: ATTEND Student in an Organized Health Care Education/Training Program
DX: G89.29 Other chronic pain (principal); M47.26 Other spondylosis with radiculopathy, lumbar region; I10 Essential (primary) hypertension; M19.90 Unspecified osteoarthritis, unspecified site; Z79.1 Long term (current) use of non-steroidal anti-inflammatories (NSAID); Z79.891 Long term (current) use of opiate analgesic; Z79.899 Other long term (current) drug therapy; D32.9 Benign neoplasm of meninges, unspecified
CPT/HCPCS: 81025

== ENCOUNTER → 2019-01-10 | Outpatient (CLI) | payer MEDICAID ==
[2019-01-10 10:58] VITALS: BP 126/86; PULSE 74; RESP 16
--- NOTE | 2019-01-10 11:27 | P.PAINPG ---
Subjective Progress Note Date: 01/10/19 This is a follow-up visit for this 48 years old female with a history of severe and chronic low back pain, she is diagnosed with lumbar spondylosis and lumbar degenerative disc disease, recently we have done diagnostic medial branch block lumbar area at L3, L4, L5 x2 , her pain levels before the first diagnostic block was 4/10 dropped to 0/10 after the block ,And the pain relief was for short-term , and she got similar result after the second diagnostic block, she denies any motor or sensory deficit she denies any fever or night sweats, she'll continue to use Motrin when necessary and [place] 7.5/325 and she is getting prescription refills from her primary care, she denies any side effect of the medication Objective - Vital Signs Vital signs: Vital Signs Temp Pulse 74 01/10/19 10:51 Resp 16 01/10/19 10:51 BP 126/86 01/10/19 10:51 Pulse Ox 97 01/10/19 10:51 - Exam Physical Examinations : -Constitutiona : Cooperative , not in acute distress . -HEENT : nech : supple , no Lymphadenopathy , normal thyroid size . eyes : no ptosis , no icterus, no photophobia . - musculoskeltal : Lumber spine moter stegnth lower extremities ,thigh and legs 5/5 Right side , 5/5 Left side Assessment and Plan Assessment: Assessment and plan= chronic severe low back pain secondary to lumbar spondylosis with lumbar facet arthropathy Patient had excellent pain relief after diagnostic medial branch block lumbar area 2 , she will be good candidate to have RFA of the medial branch L3, L4, L5 , we'll do the left side first Time with Patient: Less than 30 PQRS Measure Charge Sheet Measure #130: Documentation of Current Meds in Medical Chart: Patient's medications documented in chart Measure #226: Tobacco Use: Screen & Cessation Intervention: Pt not a tobacco user Measure #111: Pneumonia Vaccination: Pneumococcal vaccine NOT administered or previously given Measure #47: Advance Care Plan: Advance care planning discussed & documented, pt chose/unable to give Measure #412: Opioid Treatment Agreement: No documentation of signed opioid treatment agreement Measure #408: Opioid Therapy Follow-up Evaluation: Patient had NO f/u eval minimum every 3 months during opioid therapy Measure #317: Preventitive Care & Scrn High Bld Press & F/U: Normal blood pressure, f/u not required Measure #128: Body Mass Index (BMI) Screening & Follow-up: BMI documented ABOVE normal parameters - f/u documented Measure #131: Pain Assessment & Follow-up: Pain positive & plan documented, Follow-up scheduled Measure #431: Unhealthy Alcohol Use Preventative Care & Scrn: Patient not identified as an unhealthy alcohol user PQRS Narrative: Smoking Status Never smoker Blood Pressure 126/86 Pain Intensity [Lower Back] 3 Scale Used Numeric (1 - 10) Hx Alcohol Use (MH) Yes: RARE Home Medications: Ambulatory Orders Metoprolol Succinate (ER) [Toprol Xl] 50 mg PO DAILY 04/20/16 amLODIPine [Norvasc] 5 mg PO DAILY 04/20/16 Cholecalciferol (Vitamin D3) [Vitamin D3] 2,000 unit PO DAILY 11/30/18 DULoxetine HCL [Cymbalta] 30 mg PO BID 11/30/18 HYDROcodone/APAP 7.5-325MG [[place] 7.5-325] 1 tab PO Q6HR PRN 11/30/18 Ibuprofen [Motrin] 600 mg PO Q6HR PRN 11/30/18 Controlled Substance Measures - Controlled Substance Measures Is patient prescribed a controlled substance at discharge?: No
== END | disposition home or self-care (01) ==
LOC: PNWHC3 10:45
PROVIDERS: ATTEND Specialist
DX: G89.29 Other chronic pain (principal); M47.816 Spondylosis without myelopathy or radiculopathy, lumbar region; M51.36 Other intervertebral disc degeneration, lumbar region; M46.96 Unspecified inflammatory spondylopathy, lumbar region; Z98.890 Other specified postprocedural states; Z79.899 Other long term (current) drug therapy
CPT/HCPCS: 99211

== ENCOUNTER 2019-02-06 09:21 | Day surgery (SDC) | payer MEDICAID ==
[2019-02-05 09:19] VITALS: BMI 26.5
[2019-02-06] MEDS ORDERED: LIDOCAINE 1% 20 ML VIAL (10MG/ML) FOR IV START INTRADERMA ONE (10:09)
[2019-02-06 10:20] VITALS: TEMP 98
--- NOTE | 2019-02-06 10:57 | P.PCN ---
Date of Procedure: 02/06/19 Procedure(s) Performed: OPERATION: Radiofrequency ablation of the medial branch lumbar area at left side, L3 medial branch, L4 medial branch, and dorsal rami of 5 levels under fluoroscopic guidance. PREOPERATIVE DIAGNOSES: 1. Lumbar facet arthropathy. 2. Lumbar degenerative disc disease. POSTOPERATIVE DIAGNOSES: 1. Lumbar facet arthropathy. 2. Lumbar degenerative disc disease. COMPLICATIONS: None. PHYSICIAN: Hannah Hayden MD ANESTHESIA: moderate sedation with local infiltration. CONDITION: Stable. INDICATION FOR THE PROCEDURE: This is 48-year-old female with a history of low back pain. Procedure, risks and benefits discussed with the patient who agreed with proceeding. Patient taken to the operating room, placed in prone position. All standard monitors applied to the patient. Then after induction of anesthesia, back prepped with Betadine 3 times. Then under fluoroscopic guidance we used 1% lidocaine 5 mL for skin and subcutaneous tissue infiltrations, Then after that, 18-gauge radiofrequency active-tip needles, 3 needles used, each one of them placed at the junction of the base of the transverse process and the superior articulating process of the left side at, L3-4, L4-5 and L5-S1 levels. Needle placement confirmed with AP and oblique and lateral views. Then after appropriate needle placement confirmed, we checked for the motor stimulation at 2.5 v, which was positive for localized contractions in the lumbar area and there were no contractions in the lower extremities. Then 1 cc of 4% lidocaine was injected into each needle. Then after that, the radiofrequency done at 80 degrees Centigrade for 90 seconds at each level. The needles were subsequently removed. Patient tolerated the procedure well without any complication and will follow up for the right side.
[2019-02-06] MEDS ORDERED: IV FLUID CONTINUATION 1,000 ML IV ONE (11:15)
--- NOTE | 2019-02-06 11:56 | FL ---
Fluoroscopy History: RFA lt lumbar RFA lt lumbar. Dr Hayden. 12 sec fl time. 3 pics scanned
[2019-02-06 12:03] VITALS: BP 119/72; PULSE 64; RESP 16
== END 2019-02-06 12:00 | disposition home or self-care (01) ==
LOC: ORPAIN 09:21
PROVIDERS: ATTEND Student in an Organized Health Care Education/Training Program
DX: M47.896 Other spondylosis, lumbar region (principal); M51.36 Other intervertebral disc degeneration, lumbar region
CPT/HCPCS: 81025; 64635; 64636; J2250; J3010; 99152

== ENCOUNTER 2019-02-20 07:07 | Day surgery (SDC) | payer MEDICAID ==
[2019-02-19 08:21] VITALS: BMI 26.5
[2019-02-20 07:26] VITALS: RESP 16; TEMP 97.6
[2019-02-20] MEDS ORDERED: LIDOCAINE 1% 20 ML VIAL (10MG/ML) FOR IV START INTRADERMA ONE (07:39)
--- NOTE | 2019-02-20 08:24 | P.PCN ---
Date of Procedure: 02/20/19 Procedure(s) Performed: PREOPERATIVE DIAGNOSIS: 1-Lumbar Spondylosis with Facet Arthropathy without myelopathy. 2- Lumber degenerative disc disease POSTOPERATIVE DIAGNOSIS: 1- Lumbar Spondylosis with Facet Arthropathy without myelopathy. 2- Lumber degenerative disc disease PROCEDURES : Right Radiofrequency thermocoagulation, L3, L4 , and L5 medial branch, with fluoroscopic guidance (fluoroscopy images available in the radiology department) (to denervate the right side facet joint at L4-5 , and L5-S1 ) ANESTHESIA: Moderate sedation with intravenous versed 2 mg and fentaneyl 100 mcg, and local infiltration with Ropivacaine 0.5 % . EBL: Minimal PROCEDURE INDICATION: The patient with low back pain secondary to lumbar facet arthropathy who had more than 50% relief of her pain with previous diagnostic lumbar medial branch block with bupivacaine. PROCEDURE DESCRIPTION / TECHNIQUE: The patient was seen and identified in the preoperative area. Risks, benefits, complications, including but not limited to risk of infection ,bleeding , allergic reactions to the medications and no complete pain releife , and alternatives were discussed with the patient, the patient agreed to proceed with the procedure and signed the consent. IV was started. Vital signs remained stable throughout the procedure. Patient was taken to the OR and time out was completed. The patient was placed in the prone position on the procedure table. The lumber area was prepped and draped in the usual sterile fashion. . Vital signs were closely monitored during the procedure .IV sedation was used during the procedure to decrease patients anxiety. Using AP and then oblique fluoroscopy, the ``eye of the Parker dog corresponding to the connection between the superior and transverse articular processes of right L3, L4, and L5 were identified, marked, and localized with 1% lidocaine. Subsequently, a 18 -kg radiofrequency cannula with a 10- mm active tip was advanced guided by fluoroscopy to each of the``eyes of the Parker dog at right L3, L4, and L5. Each site then underwent sensory testing at 50 Hz and 0 to 1 volt and motor testing at 2.5 Hz and 0 to 3 volt with local stimulation, but no radicular symptoms down the legs. Thereafter the right L3, L4 , and L5 sites underwent radiofrequency thermocoagulation at 80 degrees celsius for 90 seconds after injecting 0.5 ml of PF Ropivacaine 1ml, then after the thermocoagulation done , 1 ml of the block solution containing Depo-Medrol 40 mg and 3 ml of Ropivacaine 0.5% was injected at the right L3 , L4 , and L5 , levels after negative aspiration of CSF and blood and with no paresthesias. Cannulas were retracted while injecting lidocaine 1% until the needle is out. . At the end of the procedure, the skin was cleansed and bandages were applied. COMPLICATIONS: No acute complications. DISPOSITION / PLANS: The patient was placed in a supine position and transferred to the recovery area in a stable condition for observation and was discharged from the recovery room after meeting discharge criteria. Home discharge instructions given to the patient by the staff. The patient was reexamined prior to discharge. The patient will schedule a follow up in the clinic in 2-4 weeks.
[2019-02-20] MEDS ORDERED: IV FLUID CONTINUATION 1,000 ML IV ONE (08:30)
[2019-02-20 08:51] VITALS: BP 126/79; PULSE 86
--- NOTE | 2019-02-20 13:04 | FL ---
EXAMINATION TYPE: FL guided pain mgmt statistic DATE OF EXAM: 02/20/2019 CLINICAL HISTORY: Low back pain. TECHNIQUE: Fluoroscopy. COMPARISON: None. FINDINGS: Fluoroscopic guidance was provided during pain relief procedure performed by Dr. Booth . A total of 14 seconds of fluoroscopic time was utilized during the procedure and 3 spot images are acquired. Images acquired shows needle localization at several levels in the lower lumbar spine and upper sacrum. IMPRESSION: As Above.
== END 2019-02-20 09:07 | disposition home or self-care (01) ==
LOC: ORPAIN 07:07
PROVIDERS: ATTEND Specialist
DX: M47.816 Spondylosis without myelopathy or radiculopathy, lumbar region (principal); M51.36 Other intervertebral disc degeneration, lumbar region; I10 Essential (primary) hypertension
CPT/HCPCS: 81025; 64635; 64636; J2250; J1030; J3010; 99152; 99153

== ENCOUNTER → 2019-03-26 | Outpatient (CLI) | payer MEDICAID ==
[2019-03-26 13:22] VITALS: PULSE 72; RESP 16
--- NOTE | 2019-03-28 10:11 | P.PAINPG ---
Subjective Progress Note Date: 03/26/19 This is a follow-up visit for this 48 year old female with a history of severe and chronic low back pain, she is diagnosed with lumbar spondylosis and lumbar degenerative disc disease, recently we have done radiofrequency ablation at L3, L4, L5, on left side on 02/06/2019 and right side on 02/20/2019. She returns today for follow-up. She reports excellent relief following these procedures, currently does not have any pain. She continues to do yoga. She continues to use Motrin when necessary and Cymbalta, she is getting prescription refills from her primary care, she denies any side effect of the medication Review of systems is negative for chest pain, shortness of breath, new onset weakness, numbness/tingling, abdominal pain, malaise, fever, night sweats, chills, homicidal or suicidal ideation, or bowel or bladder incontinence. Objective Physical exam: Vitals: Reviewed in EMR, of note the pressure is elevated at 164/104 GENERAL: Well appearing, in no acute distress PSYCH: Mood and affect is appropriate. Awake, alert, and oriented SKIN: Skin color, texture, turgor normal, no rashes or lesions HEENT: Normocephalic, atraumatic. EOM intact CV: No pedal edema RESP: Respirations are unlabored, no audible wheezing GI: Abdomen non-distended MUSCULOSKELETAL: Bilateral upper and lower extremity strength is normal and symmetric. No atrophy or tone abnormalities are noted. Lumbar spine: No pain to palpation over the lumbar spine and paraspinous muscles. Negative for pain with facet loading and back extension/rotation. Normal range of motion without pain reproduction Buttocks: No pain to palpation over the PSIS, sacroiliac joint maneuvers are negative for pain. Extremities: Peripheral joint ROM is full and pain free without obvious instability or laxity in all four extremities. No edema or skin discolorations noted. Gait: Gait is normal NEUR: Bilateral lower extremity coordination and muscle stretch reflexes are physiologic and symmetric. Negative clonus bilaterally. No loss of sensation is noted. Assessment and Plan Assessment: Assessment and plan= lumbar spondylosis with lumbar facet arthropathy Patient had excellent pain relief after RFA of the medial branch L3, L4, L5 bilaterally Patient was instructed to follow up with primary care physician regarding elevated blood pressure. Patient was given exercise handout for low back stretching and strengthening exercises as well as core exercises. Follow-up: When necessary PQRS Measure Charge Sheet Measure #130: Documentation of Current Meds in Medical Chart: Patient's medications documented in chart Measure #226: Tobacco Use: Screen & Cessation Intervention: Pt not a tobacco user Measure #111: Pneumonia Vaccination: Pneumococcal vaccine NOT administered or previously given Measure #47: Advance Care Plan: Advance care planning discussed & documented, pt chose/unable to give Measure #412: Opioid Treatment Agreement: No documentation of signed opioid treatment agreement Measure #408: Opioid Therapy Follow-up Evaluation: Patient had NO f/u eval minimum every 3 months during opioid therapy Measure #317: Preventitive Care & Scrn High Bld Press & F/U: Pre-hypertensive or hypertensive blood pressure documented and patient will follow up with primary care physician Measure #128: Body Mass Index (BMI) Screening & Follow-up: BMI documented within normal parameters Measure #131: Pain Assessment & Follow-up: Pain negative & plan documented, Follow-up as needed Measure #431: Unhealthy Alcohol Use Preventative Care & Scrn: Patient not identified as an unhealthy alcohol user PQRS Measure Charge Sheet PQRS Narrative: Smoking Status Never smoker Pain Intensity [None] 0 Scale Used Numeric (1 - 10) Hx Alcohol Use (MH) No: RARE Home Medications: Ambulatory Orders Metoprolol Succinate (ER) [Toprol Xl] 50 mg PO DAILY 04/20/16 amLODIPine [Norvasc] 5 mg PO DAILY 04/20/16 Cholecalciferol (Vitamin D3) [Vitamin D3] 2,000 unit PO DAILY 11/30/18 DULoxetine HCL [Cymbalta] 30 mg PO BID 11/30/18 HYDROcodone/APAP 7.5-325MG [[place] 7.5-325] 1 tab PO Q6HR PRN 11/30/18 Ibuprofen [Motrin] 600 mg PO Q6HR PRN 11/30/18 Controlled Substance Measures - Controlled Substance Measures Is patient prescribed a controlled substance at discharge?: No
== END | disposition home or self-care (01) ==
LOC: PNWHC3 12:20
PROVIDERS: ATTEND Anesthesiology
DX: M47.816 Spondylosis without myelopathy or radiculopathy, lumbar region (principal); Z79.891 Long term (current) use of opiate analgesic; Z79.899 Other long term (current) drug therapy
CPT/HCPCS: 99211

== ENCOUNTER → 2019-03-27 | Outpatient (CLI) | payer MEDICAID ==
--- NOTE | 2019-03-28 10:16 | MM ---
Reason for exam: screening (asymptomatic). Last mammogram was performed 2 years and 4 months ago. Physical Findings: A clinical breast exam by your physician is recommended on an annual basis and results should be correlated with mammographic findings. MG 3D Screening Mammo W/Cad Bilateral CC and MLO view(s) were taken. Prior study comparison: December 07, 2016, bilateral MG 3d screening mammo w/cad. January 05, 2012, bilateral digital screening mammo w/CAD. The breast tissue is heterogeneously dense. This may lower the sensitivity of mammography. No significant changes when compared with prior studies. ASSESSMENT: Benign, BI-RAD 2 RECOMMENDATION: Routine screening mammogram of both breasts in 1 year.
== END | disposition home or self-care (01) ==
LOC: RADMAMWWP 06:58
PROVIDERS: ATTEND Family Medicine
DX: Z12.31 Encounter for screening mammogram for malignant neoplasm of breast (principal)
CPT/HCPCS: 77063; 77067

== ENCOUNTER → 2019-12-19 | Outpatient (CLI) | payer MEDICAID ==
[2019-12-19 10:15] LABS: Basophils % (A) 1 %; Eosinophils # (A) 0.2 k/uL (0-0.7); Eosinophils % (A) 4 %; HCT 41.2 % (34.0-46.0); HGB 13.3 gm/dL (11.4-16.0); Lymphocytes # (A) 1.8 k/uL (1.0-4.8); Lymphocytes % (A) 33 %; MCH 29.3 pg (25.0-35.0); MCHC 32.3 g/dL (31.0-37.0); MCV 90.6 fL (80.0-100.0); Mean Platelet Volume 6.9; Monocytes # (A) 0.3 k/uL (0-1.0); Monocytes % (A) 6 %; Neutrophils % (A) 56 %; Platelet Count 293 k/uL (150-450); RBC 4.55 m/uL (3.80-5.40); RDW 12.4 % (11.5-15.5); WBC 5.4 k/uL (3.8-10.6)
[2019-12-19 22:30] LABS: % Iron Saturation 22.71 (12.00-45.00); African American GFR (CKD) 117.9 (60.0-200.0); Albumin 4.4 g/dL (3.80-4.90); Albumin/Globulin Ratio 1.83 (1.60-3.17); Anion Gap 11.3 mmol/L (4.00-12.00); BUN/Creat Ratio 21.43 Ratio (12.00-20.00); Calcium 9.2 mg/dL (8.7-10.3); Carbon Dioxide 23.7 mmol/L (21.6-31.8); Chol/HDL Ratio 3.2; Globulin 2.4 g/dL (1.6-3.3); LDL Cholesterol,Calculated 91.8 mg/dL (0.0-131.0); Non-African American GFR(CKD) 101.7 (60.0-200.0); Potassium 4.2 mmol/L (3.5-5.5); Total Bilirubin 0.6 mg/dL (0.3-1.2); Total Protein 6.8 g/dL (6.2-8.2); VLDL Calculation 16.2 mg/dL (5.00-40.00)
[2019-12-19 23:07] LABS: Cancer Antigen 125 60.2 U/mL (0.0-30.1)
== END | disposition home or self-care (01) ==
LOC: LABWHC1 08:51
PROVIDERS: ATTEND Family Medicine
DX: Z00.00 Encounter for general adult medical examination without abnormal findings (principal); Z13.220 Encounter for screening for lipoid disorders; N92.0 Excessive and frequent menstruation with regular cycle; I10 Essential (primary) hypertension
CPT/HCPCS: 36415; 80053; 80061; 82607; 83540; 83550; 84443; 85025; 86304

== ENCOUNTER → 2020-01-01 | Outpatient (CLI) | payer MEDICAID ==
--- NOTE | 2020-01-02 09:01 | US ---
EXAMINATION TYPE: US transvaginal DATE OF EXAM: 01/01/2020 COMPARISON: NONE CLINICAL HISTORY: N92.0 Polymenorrhea. Pain elevated CA 125 TECHNIQUE: Transvaginal (TV). EXAM MEASUREMENTS: Uterus: 7.1 x 4.7 x 5.4 cm Endometrial Stripe: .5 cm Right Ovary: 2.5 x 1.0 x 1.9 cm Left Ovary: 2.9 x 1.7 x 1.5 cm 1. Uterus: Retroverted and retroflexed. Heterogenous hyperechoic mass with areas of calcification an d shadowing, likely fibroid measuring 2.9 x 3.4 x 3.3cm. This mass appears subserosal and intramural, and approaches the endometrium (image #18 of 40). 2. Endometrium: Normal. 3. Right Ovary: Normal. Posterior changes. 4. Left Ovary: Visualized portions normal. Partially obscured by over lying bowel gas. 5. Bilateral Adnexa: Normal. 6. Posterior cul-de-sac: Normal. IMPRESSION: 1. Ovaries are normal as visualized. Left ovary is partially secured by overlying bowel gas. 2. No evidence of free fluid or focal adnexal abnormality. 3. Retroverted retroflexed uterus. 3.4 cm heterogenous hyperechoic mass likely uterine fibroid.
== END | disposition home or self-care (01) ==
LOC: RADUSWWP 16:39
PROVIDERS: ATTEND Family Medicine
DX: N85.4 Malposition of uterus (principal); N85.8 Other specified noninflammatory disorders of uterus
CPT/HCPCS: 76830

== ENCOUNTER → 2020-01-10 | Outpatient (CLI) | payer MEDICAID | END | disposition home or self-care (01) | LOC: LABWHC1 15:44 | PROVIDERS: ATTEND Obstetrics & Gynecology | DX: R97.1 Elevated cancer antigen 125 [CA 125] (principal) | CPT/HCPCS: 36415; 81503; 83001 ==

== ENCOUNTER → 2020-01-29 | Outpatient (CLI) | payer MEDICAID ==
--- NOTE | 2020-01-29 16:16 | XR ---
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 Lungs an d pleural spaces are clear. IMPRESSION: No acute cardiopulmonary process.
--- NOTE | 2020-01-30 10:54 | CT ---
EXAMINATION TYPE: CT abdomen pelvis w con DATE OF EXAM: 01/29/2020 COMPARISON: None HISTORY: UTERINE MASS CT DLP: 810.9 mGycm CONTRAST: CT scan of the abdomen and pelvis is performed with Oral Contrast and with IV Contrast, patient injec analia with 100 mL of Isovue 300. FINDINGS: LUNG BASES-: No visible nodule. No infiltrate. LIVER/GB: No calcified gallstones. No space occupying hepatic lesion. Biliary tree is of normal ca liber. PANCREAS: No inflammation. No distinct mass. SPLEEN: No splenic enlargement. No lesion seen. ADRENALS: No nodule. No thickening. KIDNEYS/BLADDER: No hydronephrosis. No nephrolithiasis. No distinct renal mass. Urinary bladder g rossly unremarkable. BOWEL: Normal appendix. Normal bowel caliber. No inflammation. GENITAL ORGANS: Heterogenous uterine fundal mass may reflect a leiomyoma however mass of other etiol ogy is not excluded. Endometrium appears to be grossly unremarkable. Right ovarian cyst measures 1.8 cm. LYMPH NODES: No greater than 1cm abdominal or pelvic lymph nodes are appreciated. AORTA: No significant abnormality. OSSEOUS STRUCTURES: No significant abnormality is seen. OTHER: No significant additional abnormality is seen. IMPRESSION: 1. Heterogenous uterine fundal mass may reflect a leiomyoma however mass of other etiology is not exc luded. Endometrium appears to be grossly unremarkable. Right ovarian cyst measures 1.8 cm.
== END | disposition home or self-care (01) ==
LOC: RADCTMAIN 15:11
PROVIDERS: ATTEND Obstetrics & Gynecology
DX: N83.201 Unspecified ovarian cyst, right side (principal); N85.8 Other specified noninflammatory disorders of uterus
CPT/HCPCS: 71046; 74177; Q9967

== ENCOUNTER → 2020-12-26 | Outpatient (CLI) | payer MEDICAID ==
--- NOTE | 2020-12-30 10:42 | MM ---
Reason for exam: screening (asymptomatic). Last mammogram was performed 1 year and 9 months ago. History: Patient is postmenopausal. Physical Findings: A clinical breast exam by your physician is recommended on an annual basis and results should be correlated with mammographic findings. MG 3D Screening Mammo W/Cad Bilateral CC and MLO view(s) were taken. Prior study comparison: March 27, 2019, bilateral MG 3d screening mammo w/cad. December 07, 2016, bilateral MG 3d screening mammo w/cad. Finding: There are new intermediate concern, suspicious, fine calcifications in the 9 o'clock posterior position of the right breast. New finding since March 27, 2019 and December 07, 2016. ASSESSMENT: Incomplete: need additional imaging evaluation, BI-RAD 0 RECOMMENDATION: Special view mammogram of the right breast. [facility] will attempt to contact patient to return for supplemental views.
== END | disposition home or self-care (01) ==
LOC: RADMAMWWP 07:39
PROVIDERS: ATTEND Family Medicine
DX: Z12.31 Encounter for screening mammogram for malignant neoplasm of breast (principal); Z78.0 Asymptomatic menopausal state
CPT/HCPCS: 77063; 77067

== ENCOUNTER → 2020-12-31 | Outpatient (CLI) | payer MEDICAID ==
--- NOTE | 2020-12-31 09:43 | MM ---
Reason for exam: additional evaluation requested from abnormal screening. Last mammogram was performed less than 1 month ago. History: Patient is postmenopausal. Physical Findings: Nurse did not find any significant physical abnormalities on exam. MG 3D Work Up W/Cad RT CC with magnification, LM with magnification, and LM view(s) were taken of the right breast. Prior study comparison: December 26, 2020, bilateral MG 3d screening mammo w/cad. The breast tissue is heterogeneously dense. This may lower the sensitivity of mammography. Finding: There are very faint, fine, regional calcifications in the upper inner quadrant, posterior position of the right breast. Finding is changed when compared to December 26, 2020. These results were verbally communicated with the patient and result sheet given to the patient on 12/31/20. ASSESSMENT: Probably benign, BI-RAD 3 RECOMMENDATION: Follow-up diagnostic mammogram of the right breast in 3 months. (magnification views)
== END | disposition home or self-care (01) ==
LOC: RADMAMWWP 08:26
PROVIDERS: ATTEND Family Medicine
DX: R92.1 Mammographic calcification found on diagnostic imaging of breast (principal); Z78.0 Asymptomatic menopausal state
CPT/HCPCS: 77061; 77065

== ENCOUNTER → 2021-01-29 | Outpatient (CLI) | payer MEDICAID ==
[2021-01-29 18:55] LABS: Basophils # (A) 0.04 X 10*3/uL (0.00-0.10); Basophils % (A) 0.7 %; Eosinophils # (A) 0.19 X 10*3/uL (0.04-0.35); Eosinophils % (A) 3.4 %; HCT 43.3 % (37.2-46.3); Lymphocytes # (A) 2.56 X 10*3/uL (0.90-5.00); Lymphocytes % (A) 45.9 %; MCHC 32.3 g/dL (32.0-37.0); MCV 92.7 fL (80.0-97.0); Monocytes # (A) 0.37 X 10*3/uL (0.20-1.00); Monocytes % (A) 6.6 %; Neutrophils # (A) 2.41 X 10*3/uL (1.80-7.70); Neutrophils % (A) 43.2 %; Platelet Count 299 X 10*3/uL (140-440); RBC 4.67 X 10*6/uL (4.10-5.20); RDW 11.9 % (11.5-14.5); WBC 5.58 X 10*3/uL (4.50-10.00)
[2021-01-29 20:04] LABS: ALT 19 U/L (8-44); AST 23 U/L (13-35); African American GFR (CKD) 117.1 (60.0-200.0); Albumin 4.9 g/dL (3.8-4.9); Albumin/Globulin Ratio 1.75 (1.60-3.17); Alkaline Phosphatase 115 U/L (41-126); BUN/Creat Ratio 27.14 Ratio (12.00-20.00); Calcium 9.9 mg/dL (8.7-10.3); Carbon Dioxide 24.4 mmol/L (21.6-31.8); Chloride 102 mmol/L (96-109); Chol/HDL Ratio 3.25 Ratio; Creatine Kinase 67 U/L (26-186); Globulin 2.8 g/dL (1.6-3.3); Glucose 85 mg/dL (70-110); LDL Cholesterol,Calculated 124.7 mg/dL (0.0-131.0); Sodium 140 mmol/L (135-145); Total Protein 7.7 g/dL (6.2-8.2); VLDL Calculation 15.88 mg/dL (5.00-40.00)
[2021-01-30 02:09] LABS: Cancer Antigen 125 15.6 U/mL (0.0-30.1)
== END | disposition home or self-care (01) ==
LOC: LABWHC1 12:50
PROVIDERS: ATTEND Family Medicine
DX: Z13.220 Encounter for screening for lipoid disorders (principal); I10 Essential (primary) hypertension; N83.291 Other ovarian cyst, right side; F41.9 Anxiety disorder, unspecified
CPT/HCPCS: 36415; 80053; 80061; 82550; 84443; 85025; 86304

== ENCOUNTER → 2021-04-07 | Outpatient (CLI) | payer MEDICAID ==
--- NOTE | 2021-04-07 08:52 | MM ---
Reason for exam: follow-up at short interval from prior study. Last mammogram was performed 3 months ago. History: Patient is postmenopausal. Physical Findings: Nurse did not find any significant physical abnormalities on exam. MG 3D Diag Mammo W/Cad RT CC, MLO, LM, CC with magnification, and LM with magnification view(s) were taken of the right breast. Prior study comparison: December 31, 2020, right breast MG 3d work up w/cad RT. December 26, 2020, bilateral MG 3d screening mammo w/cad. The breast tissue is heterogeneously dense. This may lower the sensitivity of mammography. There is no discrete abnormality. These results were verbally communicated with the patient and result sheet given to the patient on 04/07/21. ASSESSMENT: Negative, BI-RAD 1 RECOMMENDATION: Return to routine screening mammogram schedule for both breasts. Back on schedule for December 2021.
== END | disposition home or self-care (01) ==
LOC: RADMAMWWP 07:01
PROVIDERS: ATTEND Family Medicine
DX: R92.8 Other abnormal and inconclusive findings on diagnostic imaging of breast (principal); Z78.0 Asymptomatic menopausal state
CPT/HCPCS: 77061; 77065

== ENCOUNTER → 2022-04-08 | Outpatient (CLI) | payer MEDICAID ==
--- NOTE | 2022-04-08 18:14 | MM ---
Reason for Exam: Screening (asymptomatic). Last mammogram was performed 1 year(s) and 3 month(s) ago. Patient History: Menarche at age 12. First Full-Term at age 26. Hysterectomy at age 49. Postmenopausal. Risk Values: Therese 5 year model risk: 1.1%. NCI Lifetime model risk: 9.7%. Prior Study Comparison: 12/26/2020 Bilateral Screening Mammogram, [facility]. 12/31/2020 Right Diagnostic Mammogram, [facility]. 04/07/2021 Right Diagnostic Mammogram, [facility]. Tissue Density: The breast tissue is heterogeneously dense. This may lower the sensitivity of mammography. Findings: Analyzed By CAD. Pattern appears symmetrical and stable. No significant interval change. No suspicious groups of microcalcifications, spiculated or lobular masses, architectural distortion or other secondary signs of malignancy are mammographically apparent. Overall Assessment: Benign, BI-RAD 2 Management: Screening Mammogram of both breasts in 1 year. A negative mammogram report should not preclude additional follow up of suspicious palpable abnormalities. Patient should continue monthly self breast exam. A clinical breast exam by your physician is recommended on an annual basis and results should be correlated with mammographic findings. Electronically signed and approved by: Samuel Medina D.O. Radiologis
== END | disposition home or self-care (01) ==
LOC: RADMAMWWP 06:59
PROVIDERS: ATTEND Family Medicine
DX: Z12.31 Encounter for screening mammogram for malignant neoplasm of breast (principal); Z78.0 Asymptomatic menopausal state
CPT/HCPCS: 77063; 77067

== ENCOUNTER → 2022-12-16 | Outpatient (CLI) | payer MEDICAID ==
--- NOTE | 2022-12-16 13:08 | US ---
EXAMINATION TYPE: US venous doppler duplex LE DATE OF EXAM: 12/16/2022 10:09 AM COMPARISON: NONE CLINICAL INDICATION: Female, 52 years old with history of M79.662 PAIN IN LOWER LEG; Bilateral leg pa in and swelling SIDE PERFORMED: Bilateral TECHNIQUE: The lower extremity deep venous system is examined utilizing real time linear array sonog france with graded compression, doppler sonography and color-flow sonography. VESSELS IMAGED: Common Femoral Vein Deep Femoral Vein Greater Saphenous Vein * Femoral Vein Popliteal Vein Small Saphenous Vein * Proximal Calf Veins (* superficial vessels) Right Leg: Appears negative for DVT Left Leg: Appears negative for DVT IMPRESSION: Grayscale, color doppler, spectral doppler imaging performed of the deep veins of the lo wer extremities. There is normal flow, compressibility, vascular waveforms.
== END | disposition home or self-care (01) ==
LOC: RADUSWWP 09:00
PROVIDERS: ATTEND Family Medicine
DX: M79.662 Pain in left lower leg (principal); M79.604 Pain in right leg; M79.89 Other specified soft tissue disorders
CPT/HCPCS: 93970

== ENCOUNTER → 2023-04-14 | Outpatient (CLI) | payer MEDICAID ==
[2023-04-14 15:20] LABS: Basophils # (A) 0.03 X 10*3/uL (0.00-0.10); Basophils % (A) 0.6 %; Eosinophils # (A) 0.09 X 10*3/uL (0.04-0.35); Eosinophils % (A) 1.8 %; HCT 42.1 % (37.2-46.3); HGB 13.7 g/dL (12.0-15.0); Lymphocytes # (A) 1.81 X 10*3/uL (0.90-5.00); Lymphocytes % (A) 36.7 %; MCH 29.5 pg (27.0-32.0); MCHC 32.5 g/dL (32.0-37.0); MCV 90.5 FL (80.0-97.0); Mean Platelet Volume 9.9 FL (9.5-12.2); Monocytes # (A) 0.36 X 10*3/uL (0.20-1.00); Monocytes % (A) 7.3 %; NRBC Per 100 WBC 0 X 10*3/uL (0.00-0.01); Neutrophils # (A) 2.62 X 10*3/uL (1.80-7.70); Neutrophils % (A) 53.2 %; Platelet Count 270 X 10*3/uL (140-440); RBC 4.65 X 10*6/uL (4.10-5.20); RDW 12.2 % (11.5-14.5); WBC 4.93 X 10*3/uL (4.50-10.00)
[2023-04-14 15:46] LABS: ALT 14 U/L (8-44); AST 17 U/L (13-35); Albumin 4.6 g/dL (3.8-4.9); Alkaline Phosphatase 109 U/L (41-126); BUN/Creat Ratio 27.43 Ratio (12.00-20.00); Blood Urea Nitrogen 19.2 mg/dL (9.0-27.0); Calcium 9.9 mg/dL (8.7-10.3); Chloride 102 mmol/L (96-109); Globulin 2.7 g/dL (1.6-3.3); Glucose 100 mg/dL (70-110); LDL Cholesterol,Calculated 103.3 mg/dL (0.0-131.0); Potassium 4.3 mmol/L (3.5-5.5); Sodium 140 mmol/L (135-145); Total Bilirubin 0.6 mg/dL (0.3-1.2); Total Protein 7.3 g/dL (6.2-8.2)
== END | disposition home or self-care (01) ==
LOC: LABWHC1 08:02
PROVIDERS: ATTEND Family Medicine
DX: I10 Essential (primary) hypertension (principal); E78.5 Hyperlipidemia, unspecified; R63.2 Polyphagia; G57.02 Lesion of sciatic nerve, left lower limb; E53.9 Vitamin B deficiency, unspecified; E55.9 Vitamin D deficiency, unspecified
CPT/HCPCS: 36415; 80053; 80061; 82306; 82607; 84443; 85025

== ENCOUNTER → 2023-04-15 | Outpatient (CLI) | payer MEDICAID ==
--- NOTE | 2023-04-17 17:56 | MR ---
EXAMINATION TYPE: MR brain wo/w con DATE OF EXAM: 04/15/2023 COMPARISON: 07/17/2018 HISTORY: F/U to prior MRI, meningioma. CONTRAST: Performed utilizing 7 mL intravenous Gadavist gadolinium contrast. TECHNIQUE: Multiplanar, multiecho imaging on a 3.0 Laya magnet is performed through the brain. Stud y is performed within 24 hours of arrival to the hospital. The craniovertebral junction is normal. The pituitary is normal. Diffusion-weighted imaging is performed. No abnormal hyperintensity is present to suggest an acute i ntracranial infarct or acute ischemic change. There is a extra-axial masslike lesion within the right occipital lobe region. This is low signal on T1, isointense signal on T2 weighted sequences. This has some heterogenous enhancement. This appears to have a dural tail meningioma may be present. This measures 2.6 x 2.9 cm. Previous measurement 2.4 x 2.6 cm. No additional or new lesions are identified. Ventricles and sulci are appropriate for the patient age. IMPRESSION: 1. Enlarging right occipital lobe mass may be a meningioma.
== END | disposition home or self-care (01) ==
LOC: RADMRIMAIN 19:14
PROVIDERS: ATTEND Family Medicine
DX: G93.89 Other specified disorders of brain (principal); D32.9 Benign neoplasm of meninges, unspecified
CPT/HCPCS: 70553; A9585

== ENCOUNTER → 2023-05-18 | Outpatient (CLI) | payer MEDICAID ==
--- NOTE | 2023-05-18 20:59 | CT ---
EXAMINATION TYPE: CT brain wo/w con, CT Venogram Head CT DLP: Combined DLP of 3299.2 mGycm, Automated exposure control for dose reduction was used. DATE OF EXAM: 05/18/2023 4:20 PM COMPARISON: Multiple priors including CT head 09/01/2017. CLINICAL INDICATION:Female, 52 years old with history of D32.9 BENIGN NEOPLASM OF MENINGES, UNSPECIFI ED; PH[facility], Benign neoplasm of meninges x10yrs. TECHNIQUE: Axial CT images of the brain were obtained with coronal and sagittal reformats created and reviewed. Contrast used:100 mL of Isovue 370 without and with IV Contrast (accession [id number]), with IV Contras t (accession [id number]), Oral contrast used: none. FINDINGS: Extra-axial spaces: There is redemonstration of a partially calcified enhancing mass within the right posterior parasagittal plane. The mass measures 2.4 x 2.4 cm and is grossly stable in size. No signi ficant associated vasogenic edema is identified. Ventricular system: Within normal limits Cerebral parenchyma: No acute intraparenchymal hemorrhage or mass effect. The nunez-white junction is well differentiated. No abnormal enhancement is seen after the administration of intravenous contras t. Cerebellum: Unremarkable. Mass effect: No evidence of midline shift. Intracranial vasculature: unremarkable Soft tissues: Normal. Calvarium/osseous structures: No depressed skull fracture. Paranasal sinuses and mastoid air cells: Clear. Visualized orbits: Orbital contents are intact. CT venogram: The previously described extra-axial mass does abut and laterally displaced with compression of the s uperior sagittal sinus. The sinus does appear to remain patent in the region. The remainder of the dural venous sinuses and deep cerebral veins are patent. No evidence of thrombus formation. IMPRESSION: CTA head/venogram: Stable appearance of previously described right parasagittal suspected meningioma with abutment of th e superior sagittal sinus, but without evidence of occlusion.
== END | disposition home or self-care (01) ==
LOC: RADCTMAIN 15:50
PROVIDERS: ATTEND Neurological Surgery
DX: D32.9 Benign neoplasm of meninges, unspecified (principal); R51.9 Headache, unspecified
CPT/HCPCS: 70496; 70470; Q9967

== ENCOUNTER → 2023-08-03 | Outpatient (CLI) | payer MEDICAID ==
--- NOTE | 2023-08-03 19:25 | MM ---
Reason for Exam: Screening (asymptomatic). Last mammogram was performed 1 year(s) and 4 month(s) ago. Patient History: Menarche at age 12. First Full-Term at age 26. Hysterectomy at age 49. Postmenopausal. Patient has history of breast feeding. Risk Values: Therese 5 year model risk: 1.2%. NCI Lifetime model risk: 9.6%. Prior Study Comparison: 12/07/2016 Bilateral Screening Mammogram, [facility]. 03/27/2019 Bilateral Screening Mammogram, [facility]. 12/26/2020 Bilateral Screening Mammogram, [facility]. 12/31/2020 Right Diagnostic Mammogram, [facility]. 04/07/2021 Right Diagnostic Mammogram, [facility]. 04/08/2022 Bilateral MG 3D screening mammo w/cad, [facility]. Tissue Density: The breasts are heterogeneously dense, which may obscure small masses. Findings: Analyzed By CAD. There is no suspicious group of microcalcifications or new suspicious mass in either breast. Overall Assessment: Negative, BI-RAD 1 Management: Screening Mammogram of both breasts in 1 year. . Patient should continue monthly self-breast exams. A clinical breast exam by your physician is recommended on an annual basis. This exam should not preclude additional follow-up of suspicious palpable abnormalities. Note on Therese scores and lifetime risk: 1. A Therese score greater than 3% is considered moderate risk. If this is the case, consider specialist referral to assess eligibility for a risk reducing agent. 2. If overall lifetime risk for the development of breast cancer is 20% or higher, the patient may qualify for future screening with alternating mammogram and breast MRI. Electronically signed and approved by: Silva Hernadez M.D. Radiologist
== END | disposition home or self-care (01) ==
LOC: RADMAMWWP 07:02
PROVIDERS: ATTEND Family Medicine
DX: Z12.31 Encounter for screening mammogram for malignant neoplasm of breast (principal); Z78.0 Asymptomatic menopausal state
CPT/HCPCS: 77063; 77067

== ENCOUNTER → 2024-03-29 | Outpatient (CLI) | payer MEDICAID ==
[2024-03-29 15:06] LABS: Basophils # (A) 0.04 X 10*3/uL (0.00-0.10); Basophils % (A) 0.6 %; Eosinophils % (A) 1.6 %; HGB 13.5 g/dL (12.0-15.0); Lymphocytes # (A) 2.25 X 10*3/uL (0.90-5.00); MCH 29.9 pg (27.0-32.0); MCHC 32.1 g/dL (32.0-37.0); MCV 93.1 FL (80.0-97.0); Mean Platelet Volume 10.2 FL (9.5-12.2); Monocytes # (A) 0.51 X 10*3/uL (0.20-1.00); Monocytes % (A) 7.9 %; NRBC Per 100 WBC 0 X 10*3/uL (0.00-0.01); Neutrophils % (A) 54.6 %; Platelet Count 328 X 10*3/uL (140-440); RBC 4.51 X 10*6/uL (4.10-5.20); RDW 12.3 % (11.5-14.5); WBC 6.42 X 10*3/uL (4.50-10.00)
[2024-03-29 15:36] LABS: ALT 23 U/L (8-44); AST 22 U/L (13-35); Albumin 4.8 g/dL (3.8-4.9); Albumin/Globulin Ratio 1.55 Ratio (1.60-3.17); Alkaline Phosphatase 110 U/L (41-126); BUN/Creat Ratio 35.75 Ratio (12.00-20.00); Blood Urea Nitrogen 28.6 mg/dL (9.0-27.0); Calcium 10.4 mg/dL (8.7-10.3); Carbon Dioxide 26.9 mmol/L (21.6-31.8); Chloride 100 mmol/L (96-109); Chol/HDL Ratio 4.32 Ratio; Creatine Kinase 62 U/L (26-186); Globulin 3.1 g/dL (1.6-3.3); Glucose 98 mg/dL (70-110); LDH 159 U/L (120-246); LDL Cholesterol,Calculated 140.8 mg/dL (0.0-131.0); Lipase 41 U/L (14-63); Potassium 4.1 mmol/L (3.5-5.5); Sodium 139 mmol/L (135-145); Total Bilirubin 0.5 mg/dL (0.3-1.2); Total Protein 7.9 g/dL (6.2-8.2)
== END | disposition home or self-care (01) ==
LOC: LABWHC1 09:44
PROVIDERS: ATTEND Family Medicine
DX: Z00.01 Encounter for general adult medical examination with abnormal findings (principal); I12.9 Hypertensive chronic kidney disease with stage 1 through stage 4 chronic kidney disease, or unspecified chronic kidney disease; E55.9 Vitamin D deficiency, unspecified; D51.9 Vitamin B12 deficiency anemia, unspecified; N18.9 Chronic kidney disease, unspecified; R07.89 Other chest pain; R63.2 Polyphagia
CPT/HCPCS: 36415; 80053; 80061; 82306; 82550; 82607; 83615; 83690; 84443; 84484; 85025

== ENCOUNTER → 2024-06-12 | Outpatient (CLI) | payer MEDICAID ==
--- NOTE | 2024-06-12 20:34 | MR ---
INDICATION: Patient age:Female; 53 years old; Reason for study: D49.6 NEOPLASM OF UNSPECIFIED BEHAVIOR OF BRAIN; [facility]. COMPARISON: CT brain 05/18/2023, 09/01/2017, CT venogram head 05/10/2023, MRI brain 04/15/2023, 07/17/2018 , 02/15/2018. TECHNIQUE: Multi planar, multi sequence imaging was performed through the brain. The patient was then given 7 cc of Gadobutrol intravenously and multi planar, T1 fat-saturation images were obtained. FINDINGS: There is redemonstration of a T1 and T2 isointense nearly homogeneously enhancing right par afalcine meningioma with dural tail. No acute intracranial hemorrhage is seen on T1-weighted noncont rast imaging. There is minimal mass effect on the posterior falx with few millimeter shift leftward a gain. No surrounding vasogenic edema. Mild mass effect on the surrounding sulci and gyri. This measur es approximately 2.9 x 2.6 x 2.5 cm which is stable. Again there is some mass effect on the superior sagittal sinus although this does appear patent. Retrospectively there is a stable enhancing lesion a long the left posterior frontal extra-axial convexity measuring up to 1.2 cm. (Series 702, image 16) This demonstrates dural tail consistent with meningioma. There is again blooming artifact on suscepti bility imaging within both lesions. Consistent with calcifications. Diffusion weighted images demonstrate no evidence of a recent infarct or other diffusion abnormality. There is no extra-axial fluid collection. There is stable size and number of the approximately 10-1 5 T2/FLAIR hyperintense nonenhancing foci in the subcortical and periventricular white matter foci. T he ventricular system and cisternal spaces are normal in size and appearance. The brain volume is ag e appropriate. Midline structures demonstrate normal morphology. The craniocervical junction appears within normal limits. Subcentimeter anterior right maxillary sinus mucous retention cyst. The remaining visualized sinuses are clear. Bilateral aphakia. Partially empty sella turcica redemonstrated. IMPRESSION: 1. There are 2 retrospectively stable meningiomas from prior MRI 04/15/2023. The larger posterior righ t parietal meningioma demonstrates slight mass effect on the superior sagittal sinus with no vasogeni c edema again. 2. Stable nonspecific white matter change, possibly on the basis of microangiopathy. [facility], , 06/12/2024 8:31 PM
== END | disposition home or self-care (01) ==
LOC: RADMRIMAIN 16:51
PROVIDERS: ATTEND Neurological Surgery
DX: D49.6 Neoplasm of unspecified behavior of brain (principal); D32.0 Benign neoplasm of cerebral meninges; R90.82 White matter disease, unspecified
CPT/HCPCS: 70553; A9585